=== PATIENT | male | born 1945 | race Caucasian/White ===

== ENCOUNTER → 2017-06-30 | Outpatient (CLI) | payer MEDICARE, OTHER ==
[~2017-06-30] MED LIST: CARVEDILOL3.125 MG PO; DIOVAN160 MG PO; DULERA 200 MCG/13 GM PO; FLONASE; HYDROCHLOROTHIA25 MG PO; LIPITOR20 MG PO; MULTAQ400 MG PO; OMEPRAZOLE40 MG PO
--- NOTE | 2017-06-30 11:59 | Diagnostic Imaging Report ---
PROCEDURE:BIOPSY THYROID FNA COMPARISON:Ultrasound images performed at an outside facility 06/13/2017. INDICATIONS:Thyroid Nodule Grader Tender: Dean Velásquez M.D. Estimated blood loss: Minimal Blood products administered: None Sedation/anesthesia: None Additional medications: Lidocaine 1% for local anesthesia Complications: No immediate Condition at completion of procedure: Stable Disposition: Discharge home FINDINGS: Written and verbal consent were obtained. Patient was placed in the supine position on the sonographic table. Preliminary sonographic evaluation of the left cervical region identified the previously described 1.3 cm hypoechoic left thyroid nodule. A safe entry route was identified and the overlying skin was prepped and draped in usual sterile fashion. Lidocaine 1% was infiltrated into the skin and subcutaneous tissues for local anesthesia. Then under continuous sonographic guidance a total of 3 fine needle aspiration specimens were obtained using 25 gauge needles. Specimens were submitted to on-site cytopathology personnel and adequacy was confirmed. At the conclusion of sampling the needle was removed and a sterile dressing was applied. The patient tolerated the procedure well, and there were no immediate post-procedural complications. CONCLUSION: Successful ultrasound-guided fine needle aspiration of a left thyroid nodule as above. Dictated by: Dean Velásquez M.D. on 06/30/2017 at 11:59 Electronically approved by: Dean Velásquez M.D. on 06/30/2017 at 11:59
--- NOTE | 2017-06-30 12:00 | Diagnostic Imaging Report ---
PROCEDURE:ULTRASOUND GUIDANCE FOR PROCEDURE COMPARISON:None. INDICATIONS: Thyroid Nodule PROCEDURE: See conclusion CONCLUSION: Refer to "BIOPSY THYROID FNA" also from 06/30/2017 for full dictated report. Dictated by: Dean Velásquez M.D. on 06/30/2017 at 11:59 Electronically approved by: Dean Velásquez M.D. on 06/30/2017 at 11:59
== END ==
LOC: US 09:40
PROVIDERS: ATTEND Otolaryngology Otolaryngology/Facial Plastic Surgery
DX: E04.1 Nontoxic single thyroid nodule (principal)
CPT/HCPCS: 10022; 76942; 88172; 88173; 88305

== ENCOUNTER 2018-10-15 13:50 | Emergency (ER) | payer MEDICARE, OTHER ==
[~2018-10-15] VITALS: Ht 170.2 cm; Wt 90.7 kg
[~2018-10-15 13:50] MED LIST changes: -FENTANYL CITRATE/PF 100MCG/2 ML INJ ONE
--- OUTSIDE RECORDS SUMMARY | 2018-10-15 13:55 | XMS REPORT | Clinical Summary ---
Author Author [facility] Organization [facility] Address Unknown Phone Unavailable Care Team Providers Care Cardiac Monitor Technician Name Role Phone Taylor Kirk MD PCP Allergies Comments Active Allergy Reactions Severity Noted Date Hives & respiratory distress Sulfa (Sulfonamide 12/08/2015 Antibiotics) Medications End Date Status Medication Sig Dispensed Refills Start Date Active carvedilol (COREG) 6.25 Take 6.25 mg 0 MG tablet by mouth. 5 Active apixaban (ELIQUIS) 2.5 mg Take by mouth 0 tablet 2 (two) times a day. Active atorvastatin (LIPITOR) 10 Take 10 mg by 0 MG tablet mouth daily. Active fluticasone (FLONASE) 50 2 sprays by 0 mcg/actuation nasal spray Each Nare route daily. Active predniSONE (DELTASONE) 10 Take 10 mg by 0 mg tablet mouth daily. Active sildenafil (VIAGRA) 100 Take 100 mg 0 MG tablet by mouth daily as needed for erectile dysfunction. Active IBUPROFEN ORAL Take by 0 mouth. Active VENTOLIN HFA 90 0 mcg/actuation inhaler 8 Active dofetilide (TIKOSYN) 500 0 MCG capsule 8 Active hydrALAZINE (APRESOLINE) 0 25 MG tablet 8 Active BEVESPI AEROSPHERE 9-4.8 0 mcg HFA aerosol inhaler 9 Active olmesartan (BENICAR) 40 daily. 0 MG tablet Active diltiazem CD (CardIZEM daily. 0 CD) 300 MG 24 hr capsule Active ipratropium (ATROVENT) 0 0.03 % nasal spray 9 Active doxycycline (VIBRAMYCIN) 0 100 MG capsule 9 01/26/2018 Discontinued valsartan (DIOVAN) 160 MG Take 1 tablet 0 tablet by mouth. 6 01/26/2018 Discontinued NIFEdipine XL (PROCARDIA Take 60 mg by 0 XL) 60 MG 24 hr tablet mouth daily. 06/18/2018 Discontinued glycopyrrolate/formoterol Inhale. 0 fum (BEVESPI AEROSPHERE INHL) 01/26/2018 Discontinued hydroCHLOROthiazide Take 25 mg by 0 (HYDRODIURIL) 25 MG mouth daily. tablet 06/18/2018 Discontinued CARTIA XT 300 mg 24 hr 0 capsule 8 01/18/2018 traMADol (ULTRAM) 50 mg Take 1 tablet 90 tablet 0 tabletIndications: (50 mg total) 8 Chronic midline low back by mouth pain without sciatica every 6 (six) hours as needed for moderate pain for up to 30 days. 12/19/2017 Discontinued HYDROcodone-acetaminophen Take 1 tablet 15 tablet 0 (NORCO) 5-325 mg per by mouth 8 tablet every 6 (six) hours as needed for moderate pain or severe pain for up to 30 days. Max Daily Amount: 4 tablets 01/18/2018 HYDROcodone-acetaminophen Take 1 tablet 15 tablet 0 (NORCO) 5-325 mg per by mouth 8 tabletIndications: every 6 (six) Chronic midline low back hours as pain without sciatica needed for moderate pain or severe pain for up to 30 days. Max Daily Amount: 4 tablets 01/09/2018 Discontinued HYDROcodone-acetaminophen Take 1 tablet 15 tablet 0 (NORCO) 10-325 mg per by mouth 8 tabletIndications: every 6 (six) Chronic midline low back hours as pain without sciatica needed for severe pain for up to 30 days. Max Daily Amount: 4 tablets 01/03/2018 methylPREDNISolone follow 21 tablet 0 (MEDROL, YFN,) 4 mg package 8 tabletIndications: directions Chronic midline low back pain without sciatica 02/08/2018 HYDROcodone-acetaminophen Take 1 tablet 15 tablet 0 (NORCO) 10-325 mg per by mouth 8 tabletIndications: every 6 (six) Chronic midline low back hours as pain without sciatica needed for severe pain for up to 30 days. Max Daily Amount: 4 tablets 06/18/2018 Discontinued olmesartan (BENICAR) 40 0 MG tablet 8 09/17/2018 Discontinued traMADol (ULTRAM) 50 mg 0 tablet 8 09/17/2018 Discontinued meloxicam (MOBIC) 7.5 mg Take 7.5 mg 0 tablet by mouth daily. 09/17/2018 Discontinued methocarbamol (ROBAXIN) Take 750 mg 0 750 MG tablet by mouth 3 (three) times a day. 02/05/2018 nystatin (MYCOSTATIN) Take 5 mL 473 mL 0 100,000 unit/mL (500,000 8 suspensionIndications: Units total) Oral thrush by mouth 4 (four) times a day for 10 days. Swish in mouth 09/17/2018 Discontinued ipratropium-albuterol Inhale 3 mL. 0 (DUO-NEB) 0.5-2.5 mg/mL nebulizer 09/17/2018 Discontinued furosemide (LASIX) 20 mg 0 tablet 9 Status Hospital, Clinic, or Ordered Dose Route Frequency Start End Date Other Facility Date Administered Medication Ended methylPREDNISolone 80 mg IM once 12/20/19 acetate (DEPO-MEDROL) 18 8 injection 80 mgIndications: Chronic midline low back pain without sciatica Ended keTOROlac (TORadol) 60 mg IM once 12/20/19 injection 60 18 8 mgIndications: Chronic midline low back pain without sciatica Ended methylPREDNISolone 80 mg IM once 12/30/19 acetate (DEPO-MEDROL) 18 8 injection 80 mgIndications: Chronic midline low back pain without sciatica Ended keTOROlac (TORadol) 60 mg IM once 12/30/19 injection 60 18 8 mgIndications: Chronic midline low back pain without sciatica Active Problems Problem Noted Date Chronic maxillary sinusitis 09/17/2018 Thyroid nodule 09/17/2018 Atrial fibrillation 12/19/2017 Chronic bronchitis 12/19/2017 Essential hypertension 12/19/2017 Pure hypercholesterolemia 12/19/2017 Chronic midline low back pain without sciatica 12/19/2017 Hemangioma 12/19/2017 Lumbar stenosis 07/28/2017 Encounters Care Team Description Date Type Specialty Leigha Juarez MA Anemia, unspecified type (Primary Dx) 10/05/2018 Orders Only Family Medicine Taylor Kirk MD Essential hypertension (Primary Dx); Pure hypercholesterolemia; Simple chronic bronchitis (HCC); Atrial fibrillation, unspecified type (HCC); Anemia, unspecified type 09/17/2018 Office Visit Internal Medicine Taylor Kirk MD Essential hypertension (Primary Dx); Gastroesophageal reflux disease, esophagitis presence not specified 06/18/2018 Office Visit Internal Medicine Leigha Juarez MA Elevated alanine aminotransferase (ALT) level (Primary Dx); Elevated liver enzymes 04/08/2018 Orders Only Family Medicine Taylor Kirk MD Annual physical exam (Primary Dx); Pure hypercholesterolemia; Essential hypertension; Atrial fibrillation, unspecified type (HCC) 03/20/2018 Office Visit Internal Medicine Marcial Timmons MD Lung mass; Cough 03/04/2018 Hospital Radiology Encounter Marcial Timmons MD Lung mass (Primary Dx); Cough 02/24/2018 Transcribe Access Orders Taylor Kirk MD Oral thrush 01/27/2018 Refill Internal Medicine Taylor Kirk MD Essential hypertension (Primary Dx); Need for vaccination; Colon cancer screening; Oral thrush 01/26/2018 Office Visit Internal Medicine Taylor Kirk MD Chronic midline low back pain without sciatica (Primary Dx) 01/09/2018 Orders Only Internal Medicine Taylor Kirk MD Chronic midline low back pain without sciatica 01/08/2018 Refill Internal Medicine Taylor Kirk MD Chronic midline low back pain without sciatica 01/08/2018 Refill Internal Medicine Taylor Kirk MD Chronic midline low back pain without sciatica (Primary Dx) 12/30/2017 Orders Only Internal Medicine Taylor Kirk MD Chronic midline low back pain without sciatica (Primary Dx) 12/29/2017 Office Visit Internal Medicine Roddy Maldonado MD Lumbar radiculopathy 12/19/2017 Hospital Radiology Encounter Taylor Kirk MD Essential hypertension (Primary Dx); Chronic midline low back pain without sciatica 12/19/2017 Office Visit Internal Medicine Breann Escamilla MA Lumbar radiculopathy (Primary Dx) 12/18/2017 Transcribe Neurosurgery Orders after 10/14/2017 Immunizations Name Dates Previously Given Next Due FLUZONE HIGH-DOSE PF 01/26/2018 Family History Medical History Relation Name Comments Cancer Other HIGH BLOOD PRESSURE/LUNG PROBLEMS, DIABETES, HEART PROBLEMS Relation Name Status Comments Other Other Social History Date Tobacco Use Types Packs/Day Years Used Former Smoker 2 7 Smokeless Tobacco: Never Used Alcohol Use Drinks/Week oz/Week Comments No Sex Assigned at Date Recorded Not on file Industry Job Start Date Occupation Not on file Not on file Not on file Travel End Travel History Travel Start No recent travel history available. Last Filed Vital Signs Time Taken Vital Sign Reading 09/17/2018 10:50 AM CDT Blood Pressure 142/83 09/17/2018 10:50 AM CDT Pulse 83 09/17/2018 10:50 AM CDT Temperature 36.2 C (97.1 F) - Respiratory Rate - 09/17/2018 10:50 AM CDT Oxygen Saturation 93% - Inhaled Oxygen - Concentration 09/17/2018 10:50 AM CDT Weight 91.6 kg (202 lb) 09/17/2018 10:50 AM CDT Height 170.2 cm (5' 7") 09/17/2018 10:50 AM CDT Body Mass Index 31.64 Plan of Treatment Care Team Description Date Type Specialty Taylor Kirk MD [address] [place] [address] [phone] Josephine Coon MD [address] [place] [address] [address] [place] [address] [phone] 10/29/2018 Office Visit Gastroenterology Taylor Kirk MD [address] [place] [address] [phone] 03/18/2019 Office Visit Internal Medicine Health Maintenance Due Date Last Done Comments SHINGLES VACCINES (#1) 1996 65+ PNEUMOCOCCAL VACCINE 2011 04/07/2013 (2 of 2 - PPSV23) INFLUENZA VACCINE 11/05/2018 01/26/2018 COLONOSCOPY SCREENING 04/07/2019 04/07/2009 Procedures Comments Procedure Name Priority Date/Time Associated Diagnosis HEMOGLOBIN & HEMATOCRIT Routine 09/17/2018 Anemia, unspecified type 11:19 AM CDT HEPATITIS ACUTE PANEL Routine 04/08/2018 Elevated alanine 9:14 AM GR[facility] SET UP [employer]PER[employer] aminotransferase (ALT) level URINALYSIS, COMPLETE, Routine 03/20/2018 Annual physical exam WITH REFLEX TO CULTURE 10:45 AM GRINDER SET UP O[employer] COMPREHENSIVE METABOLIC Routine 03/20/2018 Annual physical exam PANEL 8:46 AM GRINDER SET UP OPER[employer] CBC WITH PLATELET AND Routine 03/20/2018 Annual physical exam DIFFERENTIAL 8:46 AM GRINDER SET UP [employer] LIPID PANEL Routine 03/20/2018 Annual physical exam 8:46 AM GRINDER SET UP OPER[employer] ESTIMATED GFR Routine 03/04/2018 9:30 AM GRINDER SET UP OPER[employer] POC CREATININE Routine 03/04/2018 9:30 AM GRINDER SET UP OPER[employer] CT CHEST W CONTRAST Routine 03/04/2018 Lung mass 8:52 AM GRINDER SET UP OPER[employer] Cough MRI LUMBAR SPINE WO Routine 12/19/2017 Lumbar radiculopathy CONTRAST 2:14 PM CDT COMPREHENSIVE METABOLIC Routine 12/19/2017 Essential hypertension PANEL 12:00 AM CDT after 10/14/2017 Results * Hemoglobin & hematocrit (09/17/2018 11:19 AM CDT) Pathologist [facility] HGB 12.8 (L) 13.2 - 17.1 g/dL [facility] HCT 37.8 (L) 38.5 - 50.0 % [facility] [place] Specimen Blood Narrative Performed At FASTING:NO [facility] FASTING: NO Resulting Agency Comment Performing Organization Information: Site ID: [id number] Name: [facility] Address: [address] [place] [id number] Director: Nicole Krishnamurthy Performing Organization Address City/State/Zipcode Phone Number [place] [address] [address] * Hepatitis acute panel (04/08/2018 9:14 AM GRINDER SET UP OPERATOR [employer]IVERSAL) [facility] Hepatitis A IgM NON-REACTIVE NON-REACTIVE [facility] [place] Hepatitis B NON-REACTIVE NON-REACTIVE [facility] surface Ag [facility] [place] Hepatitis B NON-REACTIVE NON-REACTIVE [facility] core IgM [facility] [place] Hepatitis C Ab NON-REACTIVE NON-REACTIVE [facility] [place] Signal/cutoff 0.01 <1.00 [facility] [place] Specimen Blood Narrative Performed At FASTING:NO [facility] FASTING: NO Resulting Agency Comment Performing Organization Information: Site ID: [id number] Name: [facility] Address: [address] [place] [phone] Director: Nicole Krishnamurthy Performing Organization Address [facility]/Zipcode Phone Number YOLANDA [facility] [address] [address] * URINALYSIS, COMPLETE, WITH REFLEX TO CULTURE (03/20/2018 10:45 AM GRINDER SET UP OPERATOR [employer]AL) Color, UA YELLOW YELLOW [facility] [place] Appearance CLEAR CLEAR [facility] [place] Specific 1.014 1.001 - 1.035 [facility] gravity, urine [facility] [place] pH, urine 7.0 5.0 - 8.0 [facility] [place] Glucose, urine NEGATIVE NEGATIVE [facility] [place] Bilirubin, UA NEGATIVE NEGATIVE [facility] [place] Ketones, UA NEGATIVE NEGATIVE [facility] [place] Occult blood, NEGATIVE NEGATIVE [facility] urine [facility] [place] Protein, UA NEGATIVE NEGATIVE [facility] [place] Nitrite, UA NEGATIVE NEGATIVE [facility] [place] Leukocyte NEGATIVE NEGATIVE [facility] esterase, UA [facility] [place] WBC, UA NONE SEEN < OR=5 /HPF [facility] [place] RBC, UA NONE SEEN < OR=2 /HPF [facility] [place] Squamous NONE SEEN < OR=5 /HPF [facility] epithelial [facility]AGNOSTICS cells, UA [place] Bacteria, UA NONE SEEN NONE SEEN /HPF [facility] [place] Hyaline casts, NONE SEEN NONE SEEN /LPF [facility] UA [facility] [place] Reflex NO CULTURE INDICATED [facility] [place] Specimen Narrative Performed At SPLIT 03/20/2018 FROM [id number] [facility] Resulting Agency Comment Performing Organization Information: Site ID: [id number] Name: [facility] Address: [address] [place] [phone] Director: Nicole Krishnamurthy Performing Organization Address [facility]/Zipcode Phone Number YOLANDA [facility] [address] [address] * CBC with platelet and differential (03/20/2018 8:46 AM GRINDER SET UP OPERATOR [employer]IVERSAL) WBC 8.5 3.8 - 10.8 [facility] Thousand/uL [facility] [place] RBC 4.13 (L) 4.20 - 5.80 [facility] Million/uL [facility] [place] HGB 12.8 (L) 13.2 - 17.1 g/dL [facility] HCT 38.3 (L) 38.5 - 50.0 % [facility] [place] MCV 92.7 80.0 - 100.0 fL [facility] [place] MCH 31.0 27.0 - 33.0 pg [facility] [place] MCHC 33.4 32.0 - 36.0 g/dL [facility] [place] RDW 14.2 11.0 - 15.0 % [facility] [place] Platelet count 266 140 - 400 [facility] Thousand/uL [facility] MPV 10.8 7.5 - 12.5 fL [facility] [place] Neutrophils, 5,134 1,500 - 7,800 [facility] absolute cells/uL [facility] [place] Lymphocytes, 2,508 850 - 3,900 cells/uL [facility] absolute [facility] [place] Monocytes, 765 200 - 950 cells/uL [facility] absolute [facility] [place] Eosinophils, 51 15 - 500 cells/uL [facility] absolute [facility] [place] Basophils, 43 0 - 200 cells/uL [facility] absolute [facility] [place] Neutrophils 60.4 % [facility] [place] Lymphocytes 29.5 % [facility] [place] Monocytes 9.0 % [facility] [place] Eosinophils 0.6 % [facility] [place] Basophils + RC 0.5 % [facility] [place] Specimen Blood Narrative Performed At FASTING:YES [facility] PATIENT UNABLE TO VOID; ADVISED TO RETURN FOR COLLECTION. FASTING: YES Resulting Agency Comment Performing Organization Information: Site ID: [id number] Name: [facility] Address: [address] [place] [phone] Director: Nicole Krishnamurthy Performing Organization Address City/State/[place] [address] * Lipid panel (03/20/2018 8:46 AM GRINDER SET UP OPERATOR [employer]IVERSAL) Cholesterol, 152 <200 mg/dL [facility] total [facility] HDL cholesterol 52 >40 mg/dL [facility] Triglycerides 131 <150 mg/dL [facility] LDL cholesterol 77 mg/dL (calc) [facility] calculated Comment: DIAGNOSTICS Reference range: <100 [place] Desirable range <100 mg/dL for primary prevention; <70 mg/dL for patients with CHD or diabetic patients with > or=2 CHD risk factors. LDL-C is now calculated using the Shahzad calculation, which is a validated novel method providing better accuracy than the Friedewald equation in the estimation of LDL-C. Davin PAK et al. THELMA. 2013;310(19): 9675-5857 (http://education.[employer]/faq/IIC359) Cholesterol/HDL 2.9 <5.0 (calc) [facility] ratio [facility] [place] Non-HDL 100 <130 mg/dL (calc) [facility] cholesterol Comment: DIAGNOSTICS For patients with diabetes [place] plus 1 major ASCVD risk factor, treating to a non-HDL-C goal of <100 mg/dL (LDL-C of <70 mg/dL) is considered a therapeutic option. Specimen Blood Narrative Performed At FASTING:YES [facility] PATIENT UNABLE TO VOID; ADVISED TO RETURN FOR COLLECTION. FASTING: YES Resulting Agency Comment Performing Organization Information: Site ID: [id number] Name: [facility] Address: [address] [place] [phone] Director: Nicole Krishnamurthy Performing Organization Address City/State/Zipcode Phone Number [facility] [address] [place] [phone] * Comprehensive metabolic panel (03/20/2018 8:46 AM GRINDER SET UP OPERATOR [employer]IVERSAL) Only the most recent of 2 results within the time period is included. Glucose 86 65 - 99 mg/dL [facility] Comment: DIAGNOSTICS Fasting [place] reference interval BUN, whole 17 7 - 25 mg/dL [facility] blood [facility] Creatinine 0.76 0.70 - 1.18 mg/dL [facility] Comment: DIAGNOSTICS For patients >49 years of age, [place] the reference limit for Creatinine is approximately 13% higher for people identified as -Yemeni. EGFR Non-Afr. 92 > OR=[address] [facility] Yemeni mL/min/1.73m2 [facility] EGFR 106 > OR=60 [facility] Yemeni mL/min/1.73m2 [facility] BUN/creatinine NOT APPLICABLE 6 - 22 (calc) [facility] ratio [facility] [place] Sodium 144 135 - 146 mmol/L [facility] [place] Potassium 3.9 3.5 - 5.3 mmol/L [facility] [place] Chloride 106 98 - 110 mmol/L [facility] [place] CO2 34 (H) 20 - 32 mmol/L [facility] [place] Calcium 9.2 8.6 - 10.3 mg/dL [facility] [place] Protein 5.9 (L) 6.1 - 8.1 g/dL [facility] [place] Albumin, S 3.8 3.6 - 5.1 g/dL [facility] [place] Globulin, total 2.1 1.9 - 3.7 g/dL [facility] (calc) [facility] Albumin/globuli 1.8 1.0 - 2.5 (calc) [facility] n ratio [facility] [place] Total bilirubin 0.4 0.2 - 1.2 mg/dL [facility] [place] Alkaline 62 40 - 115 U/L [facility] phosphatase [facility] [place] AST 21 10 - 35 U/L [facility] [place] ALT 52 (H) 9 - 46 U/L [facility] [place] Specimen Blood Narrative Performed At FASTING:YES [facility] PATIENT UNABLE TO VOID; ADVISED TO RETURN FOR COLLECTION. FASTING: YES Resulting Agency Comment Performing Organization Information: Site ID: [id number] Name: [facility] Address: [address] [place] [phone] Director: Nicole Krishnamurthy Performing Organization Address City/State/Zipcode Phone Number [place] [phone] * Estimated GFR (03/04/2018 9:30 AM GRINDER SET UP OPERATOR [employer]IVERSAL) Pathologist [facility] Estimated GFR 85 mL/min/1.73 m2 [place] Comment: [facility] G1 >=90 Normal or high G2 60-89Mildly decreased [id number] Mildly to moderately decreased [id number] Moderately to severely decreased G4 15-29Severely decreased G5 <15Kidney failure The eGFR was calculated using the Chronic Kidney Disease Epidemiology Collaboration (CKD-EPI) equation. Interpretation is based on recommendations of the National Kidney Foundation-Kidney Disease Outcomes Quality Initiative (NKF-KDOQI) published in 2014. Specimen Blood Performing Organization Address City/[facility] Cent[facility] Phone Number [facility] [address] [place] [phone] PATHOLOGY AND GENOMIC MEDICINE [place] [phone] * POC creatinine (03/04/2018 9:30 AM GRINDER SET UP OPERATOR UNIVERSAL) [facility] POC creatinine 0.9 0.7 - 1.2 mg/dl [place] Comment: MAURISIO ART Meter ID: [id number] OXANA Rating Examiner: [facility] Specimen Blood Performing Organization Address City/State/Zipcode Phone Number [facility] [address] [place] [address] PATHOLOGY AND GENOMIC MEDICINE [place] MAURISIO BANUELOS[address] [place] [phone] [facility] * CT Chest W Contrast (03/04/2018 8:52 AM GRINDER SET UP OPERATOR [employer]IVERSAL) Specimen Narrative Performed At EXAMINATION: CT CHEST W CONTRAST [facility] CLINICAL HISTORY: R91.8 Other nonspecific abnormal finding of lung field, R05 Cough, R91.8 R05 TECHNIQUE: Multiple axial CT images of the chest are obtained with the use of 100 CC intravenous contrast. Coronal and sagittal 3-D reconstructions are obtained. CT scans are performed using radiation dose reduction techniques.Technical factors are evaluated and adjusted to ensure appropriate moderation of exposure.Automated dose management technology is applied to adjust radiation exposure while achieving a diagnostic quality image. COMPARISON: None. FINDINGS: There is less portions of the thyroid gland are unremarkable. The thoracic aorta demonstrates atherosclerotic vascular change. There is no aneurysmal dilatation. There is nonspecific mediastinal adenopathy present. The largest node measures 10 mm. The heart has no pericardial effusion. There is no pleural effusion present. The liver does not demonstrate any masses. The gallbladder has no wall thickening or any pericholecystic fluid. The left and right adrenal glands are unremarkable. The spleen and pancreas do not demonstrate any masses. The right kidney has a 2 mm nonobstructing stone present. The left kidney has a 3 cm cyst present. There are no stones visualized. The right lung zone demonstrates emphysematous changes to be present. There is no focal consolidation, lung nodule or lung masses present. IMPRESSION: 1. The right lung zone does not have any focal area of consolidation. There is some minimal scarring seen within the right middle lobe anteriorly on the lateral view. Minimal scarring seen in the right upper lobe laterally. 2. The left lung zone does not have any focal lung nodules present. 3. There is no pleural effusion or pneumothorax present. [id number] Procedure Note Interface, Radiology Results Incoming - 03/04/2018 10:35 AM GRINDER SET UP OPERATOR [employer]ERSAL EXAMINATION: CT CHEST W CONTRAST CLINICAL HISTORY: R91.8 Other nonspecific abnormal finding of lung field, R05 Cough, R91.8 R05 TECHNIQUE: Multiple axial CT images of the chest are obtained with the use of 100 CC intravenous contrast. Coronal and sagittal 3-D reconstructions are obtained. CT scans are performed using radiation dose reduction techniques. Technical factors are evaluated and adjusted to ensure appropriate moderation of exposure. Automated dose management technology is applied to adjust radiation exposure while achieving a diagnostic quality image. COMPARISON: None. FINDINGS: There is less portions of the thyroid gland are unremarkable. The thoracic aorta demonstrates atherosclerotic vascular change. There is no aneurysmal dilatation. There is nonspecific mediastinal adenopathy present. The largest node measures 10 mm. The heart has no pericardial effusion. There is no pleural effusion present. The liver does not demonstrate any masses. The gallbladder has no wall thickening or any pericholecystic fluid. The left and right adrenal glands are unremarkable. The spleen and pancreas do not demonstrate any masses. The right kidney has a 2 mm nonobstructing stone present. The left kidney has a 3 cm cyst present. There are no stones visualized. The right lung zone demonstrates emphysematous changes to be present. There is no focal consolidation, lung nodule or lung masses present. IMPRESSION: 1. The right lung zone does not have any focal area of consolidation. There is some minimal scarring seen within the right middle lobe anteriorly on the lateral view. Minimal scarring seen in the right upper lobe laterally. 2. The left lung zone does not have any focal lung nodules present. 3. There is no pleural effusion or pneumothorax present. [id number] Performing Organization Address City/State/Zipcode Phone Number [facility] [address] [place] [address] * MRI Lumbar Spine Wo Contrast (12/19/2017 2:14 PM CDT) Specimen Narrative Performed At [facility] EXAMINATION: MRI LUMBAR SPINE WO CONTRAST CLINICAL HISTORY: M54.16 Radiculopathylumbar region, Radiculopathyprior surgerynew or progressive sx COMPARISON:MRI lumbar spine dated June 04, 2017 TECHNIQUE: Multiplanar multisequence noncontrast enhanced examination was performed of the Lumbar spine. FINDINGS: Vertebral body heights are maintained without acute fracture. No focal significant marrow signal abnormality is appreciated. Soft tissues shows no mass, adenopathy or aneurysm. The partially visualized spinal cord and the conus are unremarkable. There is mild retrolisthesis of L1 and L2 by 1 to 2 mm. This is stable. Axial images through the disc spaces demonstrate the following: L1-L2: There is complete loss of disk height with disc bulge. Laminectomy changes are noted with no canal narrowing. Findings are stable. L2-L3: There is complete loss of disc height. There is disc bulge with facet hypertrophy with minimal effacement of the thecal sac. Old laminectomy changes are noted with no significant stenosis. Findings are stable. This disc osteophyte complet and facet disease minimally narrow the inferior foramina. L3-L4: There is disc bulge with facet and ligamentum flavum hypertrophy. There is moderate narrowing of the lateral recesses and thecal sac. This is stable to prior exam. This disc osteophyte complex and facet spurring results in mild to moderate left and moderate right foraminal narrowing. This does not seem quite as prominent as on prior exam. L4-L5: There is disc bulge with a posterior central protrusion with annular fissure. There is facet hypertrophy. There is minimal effacement of the ventral thecal sac without significant stenosis. This disc osteophyte complex and facet spurring mildly narrow the bilateral foramina. L5-S1: There is loss of disk height with disc bulge and facet hypertrophy. There is mild effacement of the ventral thecal sac. This disc osteophyte complet and facet spurring results in mild left and mild to moderate right foraminal narrowing. Findings are stable. The visualized sacrum is intact. IMPRESSION: Stable postop laminectomy changes are noted in the upper lumbar spine. There is stable moderate stenosis of the canal lateral recesses at L3-4. The other levels of spondylosis are grossly stable. The exact amount of foraminal narrowing appears slightly less pronounced than suggested on prior MRI due to differences in slice selection and patient positioning. No progressive stenosis identified. [facility]-[id number] Procedure Note Hm Interface, Radiology Results 12/19/2017 4:34 PM CDT EXAMINATION: MRI LUMBAR SPINE WO CONTRAST CLINICAL HISTORY: M54.16 Radiculopathy lumbar region, Radiculopathy prior surgery new or progressive sx COMPARISON: MRI lumbar spine dated June 04, 2017 TECHNIQUE: Multiplanar multisequence noncontrast enhanced examination was performed of the Lumbar spine. FINDINGS: Vertebral body heights are maintained without acute fracture. No focal significant marrow signal abnormality is appreciated. Soft tissues shows no mass, adenopathy or aneurysm. The partially visualized spinal cord and the conus are unremarkable. There is mild retrolisthesis of L1 and L2 by 1 to 2 mm. This is stable. Axial images through the disc spaces demonstrate the following: L1-L2: There is complete loss of disk height with disc bulge. Laminectomy changes are noted with no canal narrowing. Findings are stable. L2-L3: There is complete loss of disc height. There is disc bulge with facet hypertrophy with minimal effacement of the thecal sac. Old laminectomy changes are noted with no significant stenosis. Findings are stable. This disc osteophyte complet and facet disease minimally narrow the inferior foramina. L3-L4: There is disc bulge with facet and ligamentum flavum hypertrophy. There is moderate narrowing of the lateral recesses and thecal sac. This is stable to prior exam. This disc osteophyte complex and facet spurring results in mild to moderate left and moderate right foraminal narrowing. This does not seem quite as prominent as on prior exam. L4-L5: There is disc bulge with a posterior central protrusion with annular fissure. There is facet hypertrophy. There is minimal effacement of the ventral thecal sac without significant stenosis. This disc osteophyte complex and facet spurring mildly narrow the bilateral foramina. L5-S1: There is loss of disk height with disc bulge and facet hypertrophy. There is mild effacement of the ventral thecal sac. This disc osteophyte complet and facet spurring results in mild left and mild to moderate right foraminal narrowing. Findings are stable. The visualized sacrum is intact. IMPRESSION: Stable postop laminectomy changes are noted in the upper lumbar spine. There is stable moderate stenosis of the canal lateral recesses at L3-4. The other levels of spondylosis are grossly stable. The exact amount of foraminal narrowing appears slightly less pronounced than suggested on prior MRI due to differences in slice selection and patient positioning. No progressive stenosis identified. [facility]-[id number] Performing Organization Address City/State/Zipcode Phone Number [facility] [address] [place] [address] after 10/14/2017 Insurance Type Payer Benefit Subscriber ID Effective Phone Address Plan / Dates Group Medicare MEDICARE MEDICARE xxxxxxxxxxx 2005-P [place], PART A AND resent [place] B Commercial COMMERCIAL [facility] xxxxxxx 2012- COMMERCIAL Present Advance Directives Patient has advance care planning documents on file. For more information, zoie ramirez contact: Casey Ansari [address] [place] [address]
--- OUTSIDE RECORDS SUMMARY | 2018-10-15 13:57 | XMS REPORT ---
Author Author [facility] Address Unknown Phone Unavailable Care Team Providers Care Food Stylist Name Role Phone Jovita IBARRA Unavailable Unavailable Payers Payer Name Policy Type Policy Number Effective Date Expiration Date Problems This patient has no known problems. Allergies, Adverse Reactions, Alerts Allergy Name Allergy Type Status Severity Reaction(s) Onset Date Inactive Date Treating Clinician Comments Sulfa (Sulfonamide Antibiotics) DA Active MO 2018-03-12 00:00:00 Sulfa (Sulfonamide Antibiotics) DA Active MO 2018-02-16 00:00:00 Sulfa (Sulfonamide Antibiotics) DA Active MO 2018-02-13 00:00:00 Sulfa (Sulfonamide Antibiotics) DA Active MO 2018-01-15 00:00:00 Sulfa (Sulfonamide Antibiotics) DA Active MO 2018-01-14 00:00:00 Sulfa (Sulfonamide Antibiotics) DA Active MO 2017-03-10 00:00:00 Medications This patient has no known medications. Results Test Description Test Time Test Comments Text Results Atomic Results Result Comments RAD, CHEST, 2 VIEWS 2017-12-09 13:17:00 Reason for Exam:->cough FINAL REPORT Chest, two views. CLINICAL HISTORY: Cough. Comparison Study: January 01, 2017. FINDINGS: The cardiac size is unremarkable. The aorta is tortuous. Again seen is a 2.5 cm opacity in the left mid to lower lung field with an unchanged appearance as compared to previous. Some lucency is seen in the anterior aspect of the right lung. No pleural effusion or pneumothorax is noted. Pulmonary hyperinflation is present. Degenerative changes are seen. IMPRESSION: Stable study. Continuing opacity in the left lung base. This could be further assessed with CT scan if not already performed. Signed: Tyler Pereyraort Verified Date/Time: 12/09/2017 13:17:11 Reading Location: [address] Radiology Reading Room , CHEST, 2 VIEWS 2017-01-01 13:06:00 Reason for Exam:->[id number]->[facility] FINAL REPORT Chest, two views HISTORY: Cough COMPARISON: 07/08/2013 DISCUSSION: Unchanged postsurgical changes in the right lung with surgical clips and scarring in the midlung. Apparent oval lucency in the right midlung may represent a lung bulla. There is tenting of the left hemidiaphragm with apparent increased density in the left lower lung. Cardiomediastinal silhouette is unremarkable. No large pleural effusion or pneumothorax. No acute osseous abnormality. IMPRESSION: 1. Tenting of the left hemidiaphragm with increased density projecting over the left lower lung. Recommend further evaluation with chest CT to exclude underlying neoplasm. 2. Postsurgical changes in the right lung. Otherwise, no acute cardiopulmonary abnormality. Signed: Alex Urbina MDReport Verified Date/Time: 01/01/2017 13:06:55 Reading Location: [address] Radiology Reading Room THYROID [place] [address] Patient Name: BEBO YA MR #: [id number] : 1945 Age/Sex: 72/M Req #: [id number] Adm Physician: Ordered by: VIKTORIA IBARRA MD Report #: [id number] Location: Room/Bed: Procedure: [id number] US/FNA THYROID Exam Date: Exam Time: REPORT STATUS: Signed PROCEDURE: BIOPSY THYROID FNA COMPARISON: Ultrasound images performed at an outside facility 06/13/2017. INDICATIONS: Thyroid Nodule Ophthalmic Pathologist: Luanne Schmidt M.D. Estimated blood loss: Minimal Blood products administered: None Sedation/anesthesia: None Additional medications: Lidocaine 1% for local anesthesia Complications: No immediate Condition at completion of procedure: Stable Disposition: Discharge home FINDINGS: Written and verbal consent were obtained. Patient was placed in the supine position on the sonographic table. Preliminary sonographic evaluation of the left cervical region identified the previously described 1.3 cm hypoechoic left thyroid nodule. A safe entry route was identified and the overlying skin was prepped and draped in usual sterile fashion. Lidocaine 1% was infiltrated into the skin and subcutaneous tissues for local anesthesia. Then under continuous sonographic guidance a total of 3 fine needle aspiration specimens were obtained using 25 gauge needles. Specimens were submitted to on-site cytopathology personnel and adequacy was confirmed. At the conclusion of sampling the needle was removed and a sterile dressing was applied. The patient tolerated the procedure well, and there were no immediate post- procedural complications. CONCLUSION: Successful ultrasound-guided fine needle aspiration of a left thyroid nodule as above. Dictated by: Luanne Schmidt M.D. on 06/30/2017 at 11:59 Electronically approved by: Luanne Schmidt M.D. on 06/30/2017 at 11:59 Dictated By: LUANNE SCHMIDT MD 1159 Transcribed By: SOMMER on 06/30/17 1159 COPY TO: VIKTORIA IBARRA MD US GUIDANCE FOR PROCEDURE [place] [address] Patient Name: BEBO YA MR #: [id number] : 1945 Age/Sex: 72/M Req #: [id number] Adm Physician: Ordered by: VIKTORIA IBARRA MD Report #: [id number] Location: US Room/Bed: Procedure: [id number] US/US GUIDANCE FOR PROCEDURE Exam Date: Exam Time: REPORT STATUS: Signed PROCEDURE: ULTRASOUND GUIDANCE FOR PROCEDURE COMPARISON: None. INDICATIONS: Thyroid Nodule PROCEDURE: See conclusion CONCLUSION: Refer to "BIOPSY THYROID FNA" also from 06/30/2017 for full dictated report. Dictated by: Luanne Schmidt M.D. on 06/30/2017 at 11:59 Electronically approved by: Luanne Schmidt M.D. on 06/30/2017 at 11:59 Dictated By: LUANNE SCHMIDT MD 1159 Transcribed By: SOMMER on 06/30/17 1159 COPY TO: VIKTORIA IBARRA MD
--- OUTSIDE RECORDS SUMMARY | 2018-10-15 13:57 | XMS REPORT | Clinical Summary ---
Author Author JULIO CESAR [email or web address] [facility] [employer] [facility] Address Unknown Phone Unavailable Care Team Providers Care Service Desk Associate Name Role Phone Marcial Timmons MD PCP Allergies Comments Active Allergy Reactions Severity Noted Date Hives & respiratory distress Sulfa (Sulfonamide High 01/15/2012 Antibiotics) Medications End Date Status Medication Sig Dispensed Refills Start Date Active verapamil (VERELAN PM) Take 240 mg 0 240 MG 24 hr by mouth capsuleIndications: GERD nightly. (gastroesophageal reflux disease), COPD (chronic obstructive pulmonary disease) (HCC), Hemangioma of liver, Impaired fasting glucose, DJD (degenerative joint disease), lumbar, Schwannoma Active formoterol (FORADIL) 12 Inhale 12 mcg 0 mcg capsule for into the inhalerIndications: GERD lungs 2 (two) (gastroesophageal reflux times daily. disease), COPD (chronic obstructive pulmonary disease) (HCC), Hemangioma of liver, Impaired fasting glucose, DJD (degenerative joint disease), lumbar, Schwannoma Active MULTIVITAMIN Take by 0 ORALIndications: GERD mouth. (gastroesophageal reflux disease), COPD (chronic obstructive pulmonary disease) (HCC), Hemangioma of liver, Impaired fasting glucose, DJD (degenerative joint disease), lumbar, Schwannoma Active aspirin 81 MG EC Take 81 mg by 0 tabletIndications: GERD mouth daily. (gastroesophageal reflux disease), COPD (chronic obstructive pulmonary disease) (HCC), Hemangioma of liver, Impaired fasting glucose, DJD (degenerative joint disease), lumbar, Schwannoma Active RANITIDINE HCL (ZANTAC Take 150 mg 0 ORAL)Indications: GERD by mouth . (gastroesophageal reflux disease), COPD (chronic obstructive pulmonary disease) (HCC), Hemangioma of liver, Impaired fasting glucose, DJD (degenerative joint disease), lumbar, Schwannoma Active acetaminophen (TYLENOL) Take 500 mg 0 500 MG tablet by mouth as needed. Active guaifenesin-dextromethorp Take 5 mLs by 0 lipscomb (ROBITUSSIN DM) mouth as 10-100 mg/5 mL syrup needed. Active loperamide (IMODIUM) 2 mg Take 2 mg by 0 capsule mouth as needed. Active albuterol sulfate 2.5 Take 2.5 mg 0 mg/0.5 mL Nebu by nebulization every 6 (six) hours as needed. Active ipratropium-albuterol Take 3 mLs by 0 (DUO-NEB) 0.5 mg-3 mg(2.5 nebulization mg base)/3 mL nebulizer as needed. solution Active ALBUTEROL SULFATE Inhale into 0 (VENTOLIN INHL) the lungs as needed. Active sildenafil (VIAGRA) 100 Take 100 mg 0 MG tablet by mouth daily as needed. Active omeprazole (PRILOSEC) 20 Take 20 mg by 0 MG capsuleIndications: mouth daily. GERD (gastroesophageal reflux disease) Active fluticasone (FLONASE) 50 2 sprays by 0 mcg/actuation nasal Nasal route sprayIndications: daily. Allergic rhinitis Active cetirizine (ZYRTEC) 10 MG Take 10 mg by 0 tabletIndications: mouth daily. Allergic rhinitis Active hydrochlorothiazide Take 25 mg by 0 (HYDRODIURIL) 25 MG mouth daily. tabletIndications: HTN (hypertension) Active predniSONE (DELTASONE) 10 Take 10 mg by 0 MG tabletIndications: mouth daily. Lung blebs (HCC) Active metoclopramide (REGLAN) 5 TAKE 1 TABLET 60 tablet 5 MG tablet BY MOUTH 4 TWICE DAILY Active azelastine (ASTELIN) 137 1 spray by 0 mcg nasal spray Nasal route 2 5 (two) times daily. Active carvedilol (COREG) 6.25 Take 6.25 mg 0 201 MG tablet by mouth 2 5 (two) times daily. Active valsartan (DIOVAN) 160 MG Take 160 mg 0 tablet by mouth 5 daily. Active CRESTOR 5 mg tablet TAKE 2 90 tablet 3 TABLETS BY 5 MOUTH EVERY DAY Active Problems Problem Noted Date Abdominal pain, other specified site 10/03/2014 Overview: Dr. 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 Frederick Thomas, encouraged him to decrease BPH with obstruction/lower urinary tract symptoms 10/14/2012 Overview: Dr. Angel Nielsen, nocturia, on , TURP done by Dr. Nielsen, 10/2012 PSA 0.96 media Lung blebs 10/14/2012 Overview: By Dr. Renee, blebs/bollous disease since 1970s--on and off prednisone. Short stents. Took most of March 2014, none in April, Ex-smoker 10/14/2012 Overview: 4443-1128 after blebs and spontaneous pneumothorax and thoracotomy HTN (hypertension) 10/14/2012 Overview: Card Dr. Bertrand Kaur, heart cath (outside facility Dr. Centeno) LBBB (left bundle branch block) 10/14/2012 Hyperlipidemia 10/14/2012 Impaired glucose tolerance 10/14/2012 Overview: A1c 5.8--01/2012--on and off prednisone DJD (degenerative joint disease), lumbar 02/05/2012 GERD (gastroesophageal reflux disease) 01/15/2012 Overview: Reglan due to severe lung issues, aggravated by his GERD. Minimizes his dose. Saw Dr. Sayda Godoy, Prolosed and PRN Zantac COPD (chronic obstructive pulmonary disease) 01/15/2012 Overview: Smoked 10 years, quit s after multiple blebs and pneumothorax x 5 Encounters Care Team Description Date Type Specialty Marcial Timmons MD Cough 12/09/2017 Hospital Encounter Marcial Timmons MD Cough (Primary Dx) 12/09/2017 Outside Orders after 10/14/2017 Family History Medical History Relation Name Comments Heart disease Maternal Grandfather Cancer Mother lung cancer Stroke Paternal Aunt Heart disease Paternal Grandfather Stroke Paternal Grandfather Cancer Paternal melanoma Grandmother Heart disease Paternal Uncle Hypertension Sister Relation Name Status Comments Brother Alive Father congestive heart failure (Age 73) Maternal Grandfather Maternal Grandmother Mother lung Cx (Age 43) Paternal Aunt Paternal Grandfather Paternal Grandmother Paternal Uncle Sister Alive Social History Date Tobacco Use Types Packs/Day Years Used Quit: 04/07/1972 Former Smoker Cigarettes 2 8 Alcohol Use Drinks/Week oz/Week Comments Yes occasionally Sex Assigned at Date Recorded Not on file Industry Job Start Date Occupation Not on file Not on file Not on file Travel End Travel History Travel Start No recent travel history available. Last Filed Vital Signs Not on file Plan of Treatment Not on file Procedures Comments Procedure Name Priority Date/Time Associated Diagnosis XR CHEST 2 VIEWS Routine 12/09/2017 Cough 10:58 AM CDT after 10/14/2017 Results * XR Chest 2 Views (12/09/2017 10:58 AM CDT) Specimen Narrative Performed At FINAL REPORT [facility] Chest, two views. CLINICAL HISTORY: Cough. Comparison [...] scan if not already performed. Signed: Tyler Pereyra MD Report Verified Date/Time:12/09/2017 13:17:11 Reading Location: [address] Radiology Reading Room Procedure Note Interface, External Ris In - 12/09/2017 1:19 PM CDT FINAL REPORT Chest, two views. CLINICAL HISTORY: [...] scan if not already performed. Signed: Tyler Pereyra MD Report Verified Date/Time: 12/09/2017 13:17:11 Reading Location: [address] Radiology Reading Room Performing Organization Address City/State/Zipcode Phone Number [facility] after 10/14/2017 Insurance Payer Benefit Subscriber ID Type Phone Address Plan / Group MEDICARE MEDICARE A xxxxxxxxxx Medicare B MCR SUPPLEMENT/INDIVIDUAL GENERIC xxxxxxx Med[employer] MEDICARE SUPPLEMENT
[2018-10-15] MEDS ORDERED: KETOROLAC TROMETHAMINE 30 MG/ML VIAL IV ONE (14:34)
[2018-10-15] MEDS ORDERED: HYDRALAZINE HCL 20 MG/ML VIAL ONE (14:43)
[2018-10-15] MEDS ORDERED: HYDRALAZINE HCL 20 MG/ML VIAL IV ONE (14:45)
--- NOTE | 2018-10-15 14:45 | NUR ---
DR. VALENCIA INFORMED OF CURRENT B/P 179/97, ORDERED TO MEDICATE WITH HYDRALAZINE 5 MG IV; SEE eMAR. INFORMED PRIMARY NURSE HIRAM MARQUES.
[2018-10-15 15:07] LABS: BASOPHILS % 0.2 % (0.0-1.0); HEMATOCRIT 40.9 % (38.2-49.6); HEMOGLOBIN 13.8 g/dL (14.0-18.0); LYMPHOCYTES % 24.4 % (18.0-39.1); MEAN CORPUSCULAR HEMOGLOBIN 30.7 pg (28-32); MEAN CORPUSCULAR HGB CONC 33.7 g/dL (31-35); MEAN CORPUSCULAR VOLUME 90.9 fL (81-99); NEUTROPHILS # (AUTO) 8.2 (2.1-6.9); NEUTROPHILS % 66.2 % (38.7-80.0); PLATELET COUNT 292 x10e3/uL (140-360); RED CELL DISTRIBUTION WIDTH 14.3 % (11.7-14.4)
[2018-10-15 15:26] LABS: ALANINE AMINOTRANSFERASE 53 IU/L (0-55); ALBUMIN 4.1 g/dL (3.5-5.0); ALBUMIN/GLOBULIN RATIO 1.4 (0.8-2.0); ALKALINE PHOSPHATASE 70 IU/L (40-150); ANION GAP 15.1 mmol/L (8-16); BLOOD UREA NITROGEN 24 mg/dL (7-26); BUN/CREATININE RATIO 27 (6-25); CALCIUM 9.6 mg/dL (8.4-10.2); CARBON DIOXIDE 24 mmol/L (22-29); CHLORIDE 103 mmol/L (98-107); EST GLOMERULAR FILTRATION RATE > 60 ML/MIN (60-); GLUCOSE 98 mg/dL (74-118); POTASSIUM 4.1 mmol/L (3.5-5.1); SODIUM 138 mmol/L (136-145)
[2018-10-15 17:15] VITALS: BP 148/84
== END 2018-10-15 17:16 | disposition home or self-care (01) ==
LOC: ER 13:50
DX: I10 Essential (primary) hypertension (principal); M54.5 Low back pain; J44.9 Chronic obstructive pulmonary disease, unspecified; K21.9 Gastro-esophageal reflux disease without esophagitis; I48.91 Unspecified atrial fibrillation
CPT/HCPCS: 36415; 80053; 85025; 99283; J0360; J1885

== ENCOUNTER → 2018-10-15 | Outpatient (CLI) | payer MEDICARE, OTHER ==
[~2018-10-15] MED LIST changes: +FENTANYL CITRATE/PF 100MCG/2 ML INJ ONE
== END ==
LOC: US 11:37
PROVIDERS: ATTEND Otolaryngology Otolaryngology/Facial Plastic Surgery
DX: E04.2 Nontoxic multinodular goiter (principal); Z85.818 Personal history of malignant neoplasm of other sites of lip, oral cavity, and pharynx
CPT/HCPCS: 10005; J3010